=== PATIENT | male | born 1965 | race Hispanic/Latino ===

== ENCOUNTER → 2017-06-17 | Outpatient (CLI) | payer MEDICARE ==
[~2017-06-17] MED LIST: IOPAMIDOL-370 100 ML VIAL IV ONE
== END | disposition home or self-care (01) ==
LOC: OIH 09:43
PROVIDERS: ATTEND Internal Medicine Cardiovascular Disease
DX: I77.810 Thoracic aortic ectasia (principal)
CPT/HCPCS: 71275; Q9967

== ENCOUNTER 2020-09-11 08:29 | Emergency (ER) | payer MEDICARE ==
[~2020-09-11] VITALS: Ht 172.7 cm; Wt 95.3 kg
[2020-09-11 08:31] VITALS: BP 128/73
[2020-09-11 09:14] LABS: BASOPHILS % (AUTO) 0.4 % (0.0-5.0); EOSINOPHILS % (AUTO) 0.2 % (0.0-8.0); HEMATOCRIT 48.5 % (42-54); LYMPHOCYTES % (AUTO) 11.5 % (21.0-51.0); MEAN CORPUSCULAR HEMOGLOBIN 28.7 pg (27.0-33.0); MEAN CORPUSCULAR VOLUME 89.6 fL (79-99); MONOCYTES % (AUTO) 9.7 % (3.0-13.0); NEUTROPHILS % (AUTO) 77.7 % (40.0-77.0); PLATELET COUNT (AUTO) 188 K/uL (130-400); RED BLOOD CELL COUNT(AUTO) 5.41 MIL/uL (4.50-6.20); RED CELL DISTRIBUTION WIDTH 14.9 % (11.0-15.5); WHITE BLOOD COUNT (AUTO) 10.7 K/uL (4.8-10.8)
[2020-09-11 09:24] LABS: CREATININE 1.2 mg/dL (0.5-1.5); POTASSIUM 4.4 mmol/L (3.5-5.1)
[2020-09-11 09:29] LABS: ALBUMIN 3.3 g/dL (3.5-5.0); BILIRUBIN,TOTAL 0.4 mg/dL (0.2-1.0); TOTAL PROTEIN, SERUM 7.2 g/dL (6.0-8.3)
[2020-09-11 10:03] VITALS: BP 121/73
[2020-09-11] MEDS ORDERED: ACETAMINOPHEN 500 MG TABLET PO ONE (10:30)
[2020-09-11 10:34] LABS: APPEARANCE,URINE Clear (CLEAR); BILIRUBIN,URINE Negative (NEGATIVE); COLOR,URINE Yellow (YELLOW); GLUCOSE, URINE (UA) Negative (NEGATIVE); KETONES,URINE Trace mg/dL (NEGATIVE); LEUKOCYTE ESTERASE ,URINE Small (NEGATIVE); NITRATE,URINE Positive (NEGATIVE); OCCULT BLOOD,URINE Small (NEGATIVE); PH,URINE 5.5 (5.0-8.0); PROTEIN,URINE Negative (NEGATIVE)
[2020-09-11 10:51] LABS: BACTERIA,URINE Many /HPF (None Seen); MUCUS,URINE Few LPF (None Seen); SQUAMOUS EPITHELIAL CELL,UR 0-2 /HPF (0-2)
[2020-09-11] MEDS ORDERED: DOXY100T2 PO (11:06)
[2020-09-11] MEDS ORDERED: ACET-66 PO (11:06)
== END 2020-09-11 11:14 | disposition home or self-care (01) ==
LOC: EDH 08:29
DX: N39.0 Urinary tract infection, site not specified (principal); E11.9 Type 2 diabetes mellitus without complications; I10 Essential (primary) hypertension; Z79.899 Other long term (current) drug therapy
CPT/HCPCS: 36415; 80053; 81001; 85025; 87077; 87088; 87186

== ENCOUNTER 2023-08-10 13:55 | Emergency (ER) | payer MEDICARE, MEDICAID ==
[~2023-08-10] VITALS: Ht 172.7 cm; Wt 104.3 kg
[~2023-08-10 13:55] MED LIST changes: +ACET-66 PO; +DOXY100T2 PO; -IOPAMIDOL-370 100 ML VIAL IV ONE
[2023-08-10] MEDS: ASPIRIN 325MG TAB PO ONE (14:15)
[2023-08-10 14:17] LABS: BASOPHILS # (AUTO) 0.08 K/uL (0.00-0.20); BASOPHILS % (AUTO) 1.1 % (0.0-5.0); EOSINOPHILS # (AUTO) 0.56 K/uL (0.00-0.70); EOSINOPHILS % (AUTO) 7.9 % (0.0-8.0); IMMATURE GRANULOCYTE ABSOLUTE 0.02 K/uL (0-1); LYMPHOCYTES # (AUTO) 3.3 K/uL (1.0-4.8); LYMPHOCYTES % (AUTO) 46.3 % (21.0-51.0); MEAN CORPUSCULAR HEMOGLOBIN 28.9 pg (27.0-33.0); MEAN CORPUSCULAR HGB CONC 33.1 g/dL (32.0-36.0); MEAN CORPUSCULAR VOLUME 87.4 fL (79-99); MONOCYTES # (AUTO) 0.5 K/uL (0.1-1.0); MONOCYTES % (AUTO) 6.9 % (3.0-13.0); NEUTROPHILS # (AUTO) 2.7 K/uL (1.8-7.7); NEUTROPHILS % (AUTO) 37.5 % (40.0-77.0); PLATELET COUNT (AUTO) 203 K/uL (130-400); RED BLOOD CELL COUNT(AUTO) 5.95 MIL/uL (4.50-6.20); RED CELL DISTRIBUTION WIDTH 13.9 % (11.0-15.5); WHITE BLOOD COUNT (AUTO) 7.1 K/uL (4.8-10.8)
[2023-08-10 14:25] LABS: POTASSIUM 4.7 mmol/L (3.5-5.1)
[2023-08-10 14:27] LABS: APPEARANCE,URINE CLEAR (CLEAR); BILIRUBIN,URINE NEGATIVE (NEGATIVE); COLOR,URINE LIGHT-YELLOW (YELLOW); GLUCOSE, URINE (UA) NEGATIVE (NEGATIVE); KETONES,URINE NEGATIVE (NEGATIVE); LEUKOCYTE ESTERASE ,URINE NEGATIVE Leu/uL (NEGATIVE); NITRATE,URINE NEGATIVE (NEGATIVE); OCCULT BLOOD,URINE NEGATIVE (NEGATIVE); PROTEIN,URINE NEGATIVE (NEGATIVE); UROBILINOGEN,URINE 0.2 mg/dL (0.2-1.0)
[2023-08-10 14:30] LABS: ADD UA MICROSCOPIC YES
[2023-08-10 14:30] LABS: BILIRUBIN,TOTAL 0.2 mg/dL (0.2-1.0); MAGNESIUM 1.9 mg/dL (1.80-2.40)
[2023-08-10 14:31] LABS: MUCUS,URINE RARE LPF (None Seen); RBC,URINE 0-1 /HPF (0-1)
[2023-08-10 17:15] VITALS: BP 123/87; PULSE 71; RESP 18; O2SAT 99
== END 2023-08-10 17:15 | disposition home or self-care (01) ==
LOC: EDH 13:55
DX: B34.9 Viral infection, unspecified (principal); R20.2 Paresthesia of skin; E11.9 Type 2 diabetes mellitus without complications; I10 Essential (primary) hypertension
CPT/HCPCS: 36415; 71045; 80053; 81001; 83735; 84484; 85025; 93005

== ENCOUNTER → 2024-10-16 | Emergency (ER) | payer MEDICARE ==
[~2024-10-16] VITALS: Ht 172.7 cm; Wt 114.3 kg
--- NOTE | 2024-10-16 21:16 | NUR ---
REPORT TO JOCE MATHIS
--- NOTE | 2024-10-16 21:17 | NUR ---
UA CUP PROVIDED
[2024-10-16 21:38] LABS: APPEARANCE,URINE CLEAR (CLEAR); GLUCOSE, URINE (UA) NEGATIVE (NEGATIVE); LEUKOCYTE ESTERASE ,URINE NEGATIVE Leu/uL (NEGATIVE); NITRATE,URINE NEGATIVE (NEGATIVE); OCCULT BLOOD,URINE NEGATIVE (NEGATIVE)
--- NOTE | 2024-10-16 21:39 | ERN ---
ED Note History of Present Illness Stated Complaint: CHEST PAIN, HTN, NUMBNESS Chief Complaint: Multiple Complaints Time Seen by MD: 21:17 Dictation: This is a 59-year-old male who presented to the emergency room with complaints of midsternal chest pain radiating to the back which started about 3 days ago. So associated with some shortness of breath also. In view of the symptoms checked his blood pressure today at home which showed 157/121. At around 6:00 p.m. he also began experiencing some numbness of the left arm and leg. Given these symptoms he came into the ER for further evaluation. No headache diplopia facial asymmetry slurred speech or seizure activity. He has had similar episodes of paresthesias in the left arm in the past Temperature 98 pulse 81 respirations 20 blood pressure 168/106 with a pulse oximetry of 98% on room air Chronic medical problems include diabetes mellitus, hypertension, extensive surgeries on neck knee. Allergies: Coded Allergies: No Known Allergies (Unverified Allergy, Unknown, 09/11/20) Home Meds Active Scripts Acetaminophen (Tylenol) 500 Mg Tab, 500 MG PO Q6HPRN PRN for FEVER for 7 Days, #30 TAB 0 Refills Prov:FELIX TEJADA MD 09/11/20 Doxycycline Hyclate (Doxycycline Hyclate) 100 Mg Tablet, 100 MG PO BID for 14 Days, #28 TAB 0 Refills Prov:FELIX TEJADA MD 09/11/20 Past Medical History Past Medical History: Diabetes-Type II, Hypertension Surgical History: Other Surgical History Other: MULTIPLE BACK, KNEE, RT SHOULDER Family History: Negative RN Note Reviewed/Agreed w/PFSH: Yes Review of System Dictation Constitutional: Negative for fever,chills, and weight loss Eyes: Negative for injury, pain,redness, and discharge ENT: Negative for injury,pain or swelling Cardiovascular: Positive for chest pressure, denies palpitations, and edema Respiratory: Negative for shortness of breath, cough, and wheezing, Abdomen/GI: Negative for abdominal pain, nausea, vomiting, diarrhea, and constipation Back: Negative for injury and pain : Negative for injury, bleeding and discharge MS/Extremity: Negative for injury and deformity Skin: Negative for rash, and discoloration Neuro: Negative for headache, weakness, , tingling, and seizure positive for numbness in the left arm and leg Psych: Negative for suicide ideation, homicidal ideation, and hallucinations Initial Vital Sign VS Vital Signs Date Time Temp Pulse Resp B/P (MAP) Pulse Ox O2 Delivery O2 Flow Rate FiO2 10/16/24 21:15 98.1 81 20 168/106 98 Room Air 10/16/24 21:40 0 21 Physical Exam Dictation General: awake, alert, NAD overweight male Head/Face: Normocephalic, atraumatic Eyes: PERRL, EOMI, vision at baseline ENT: oral cavity clear, TMs clear, no signs of infection Mallampati score 4 Neck: Trachea midline, supple, no nuchal rigidity, short and thick Cardiovascular: RRR, normal S1/S2, No MRGs, no JVD Respiratory: CTAB, no respiratory distress, No rales or wheezes Abdomen: Soft, non-tender, non-distended, normal bowel sounds, no guarding or rebound. Skin: Warm, dry, normal turgor, no rash MS/Extremity: Pulses equal, no cyanosis, neurovascular intact, FROM Neuro: COAx4, GCS 15, strength 5/5, CN 2-12 intact, normal cerebellar exam, normal gait, Psych: Normal behavior, mood, and affect normal Extremities-trace edema without any palpable cords, Homans sign is negative Results (Laboratory/Radiology) Laboratory/Radiology Laboratory Tests Test 10/16/24 21:28 10/16/24 21:45 Urine Color LIGHT-YELLOW (YELLOW) Urine Appearance CLEAR (CLEAR) Urine pH 5.5 (5.0-8.0) Urine Specific [place] 1.022 (1.001-1.031) Urine Protein NEGATIVE mg/dL (NEGATIVE) Urine Glucose (UA) NEGATIVE mg/dL (NEGATIVE) Urine Ketones NEGATIVE mg/dL (NEGATIVE) Urine Occult Blood NEGATIVE (NEGATIVE) Urine Nitrate NEGATIVE (NEGATIVE) Urine Bilirubin NEGATIVE mg/dL (NEGATIVE) Urine Urobilinogen 0.2 mg/dL (0.2-1.0) Urine Leukocyte Esterase NEGATIVE [place]/uL Urine Opiates Screen NEGATIVE (NEGATIVE) Urine Barbiturates Screen NEGATIVE (NEGATIVE) Urine Phencyclidine Screen NEGATIVE (NEGATIVE) Urine Amphetamines Screen NEGATIVE (NEGATIVE) Urine Benzodiazepines Screen NEGATIVE (NEGATIVE) Urine Cocaine Screen NEGATIVE (NEGATIVE) Urine Marijuana (THC) Screen NEGATIVE (NEGATIVE) White Blood Count 7.4 K/uL (4.8-10.8) Red Blood Count 5.48 MIL/uL (4.50-6.20) Hemoglobin 16.3 g/dL (14.0-18.0) Hematocrit 48.5 % (42-54) Mean Corpuscular Volume 88.5 fL (79-99) Mean Corpuscular Hemoglobin 29.7 pg (27.0-33.0) Mean Corpuscular Hemoglobin Concent 33.6 g/dL (32.0-36.0) Red Cell Distribution Width 13.6 % (11.0-15.5) Platelet Count 186 K/uL (130-400) Mean Platelet Volume 11.3 fL (7.5-10.5) H Immature Granulocyte % (Auto) 0.1 % (0-1) Neutrophils (%) (Auto) 42.6 % (40.0-77.0) Lymphocytes (%) (Auto) 40.4 % (21.0-51.0) Monocytes (%) (Auto) 6.2 % (3.0-13.0) Eosinophils (%) (Auto) 9.6 % (0.0-8.0) H Basophils (%) (Auto) 1.1 % (0.0-5.0) Neutrophils # (Auto) 3.2 K/uL (1.8-7.7) Lymphocytes # (Auto) 3.0 K/uL (1.0-4.8) Monocytes # (Auto) 0.5 K/uL (0.1-1.0) Eosinophils # (Auto) 0.71 K/uL (0.00-0.70) H Basophils # (Auto) 0.08 K/uL (0.00-0.20) Absolute Immature Granulocyte (auto 0.01 K/uL (0-1) Nucleated Red Blood Cells 0.0 % (0.0-0.19) Sodium Level 142 mmol/L (136-145) Potassium Level 3.9 mmol/L (3.5-5.1) Chloride Level 107 mmol/L (101-111) Carbon Dioxide Level 28 mmol/L (21-32) Blood Urea Nitrogen 16 mg/dL (7-18) Creatinine 0.8 mg/dL (0.5-1.3) Glomerular Filtration Rate Calc 102 mL/min (>90) Random Glucose 145 mg/dL (70-105) H Total Calcium 9.0 mg/dL (8.5-10.1) Total Creatine Kinase 66 U/L (21-232) Troponin I High Sensitivity 40 ng/L (4-75) B-Type Natriuretic Peptide < 5 pg/mL (0-100) Labs Reviewed?: Yes ED Course ED Course Orders Procedure Category Date Status Time Vital Signs Per CPOE 10/16/24 Transmitted Routine 21:16 Chest 1vw RAD 10/16/24 Resulted 21:16 12 Lead Ekg Tracing- EKG 10/16/24 Logged Technical 21:16 Oxygen By Nc/Pulse Ox CPOE 10/16/24 Transmitted 21:16 Maintain Iv CPOE 10/16/24 Transmitted 21:16 Iv Insertion CPOE 10/16/24 Transmitted 21:16 Cardiac Monitoring CPOE 10/16/24 Transmitted 21:16 Pulse Oximetry With CPOE 10/16/24 Transmitted Vs And Prn 21:16 Cbc With Differential LAB 10/16/24 Complete 21:16 Activity: Br W/Brp CPOE 10/16/24 Transmitted With Assist 21:16 Creatine Kinase, Total LAB 10/16/24 Complete 21:16 Troponin I High LAB 10/16/24 Complete Sensitivity 21:16 Urinalysis Profile LAB 10/16/24 Complete 21:16 Basic Metabolic Panel LAB 10/16/24 Complete 21:16 B-Type Natriuretic LAB 10/16/24 Complete Peptide 21:16 Drug Screen Urine LAB 10/16/24 Complete 21:30 Lidocaine Hcl 2% PHA 10/16/24 Complete Viscous (Lidocaine Hcl 23:30 Mag/Alum/Simeth 30ml PHA 10/16/24 Complete (Maalox Plus 30ml) 23:30 Famotidine 20mg Tab PHA 10/16/24 Complete (Pepcid 20mg Tab) 23:30 Dicyclomine Hcl PHA 10/16/24 Complete (Bentyl 10mg/5ml 23:30 Current Medications Medications (Trade) Dose Ordered Sig/Carlito Route PRN Reason Start Time Stop Time Status Last Admin Dose Admin Al Hydroxide/Mg Hydroxide (MAALox PLUS 30ML) 30 ml ONCE ONCE PO 10/16/24 23:30 10/16/24 23:31 DC 10/16/24 23:45 Dicyclomine HCl (Bentyl 10mg/5ml Syrup) 10 mg ONCE ONCE PO 10/16/24 23:30 10/16/24 23:31 DC 10/16/24 23:45 Famotidine (Pepcid 20mg Tab) 20 mg ONCE ONCE PO 10/16/24 23:30 10/16/24 23:31 DC 10/16/24 23:45 Lidocaine HCl (Lidocaine HCl 2% Viscous) 10 ml ONCE ONCE PO 10/16/24 23:30 10/16/24 23:31 DC 10/16/24 23:45 Vital Signs Date Time Temp Pulse Resp B/P (MAP) Pulse Ox O2 Delivery O2 Flow Rate FiO2 10/17/24 00:11 98.4 84 22 128/72 96 Room Air* 0 21 10/16/24 23:03 98.8 70 20 133/85 95 Room Air* 0 21 10/16/24 21:40 98.8 87 25 131/78 96 Room Air* 0 21 10/16/24 21:15 98.1 81 20 168/106 98 Room Air We will perform diagnostic labs, advanced imaging and administer medications according to the patient's complaint. Once the results are available, will review and personally interpreted the labs to rule out any acute life-thr eatening emergency the trach require immediate intervention and treatment. I will then re-evaluate the patient after treatment and diagnostic exams have return to determine whether the patient requires any further testing, can safely be discharged home or need further admission to hospital for additional treatment and evaluation. Labs reviewed CBC BNP 7 are within normal limits. Urinalysis is unremarkable. Urine drug screen is also negative. Troponins 40. Brain natriuretic peptide is less than 5. EKGs unremarkable for any acute coronary event. Chest x-ray elevated right hemidiaphragm and some compressive atelectasis on the right side but no evidence of any focal infiltrate or acute intra thoracic abnormality. They elevated right hemidiaphragm is likely related to cervical spondylosis and injury to the phrenic nerve I updated patient and spouse on all the available results and discussed possibilities that his chest discomfort was likely related to esophagitis or gastritis He responded very well to the symptomatic treatment. I counseled him on weight loss, avoidance of diet cokes he and spouse verbalized full understanding He should follow up with his primary care physician for outpatient polysomnography. Medical Decision Making MDM MDM: Differential diagnosis: Rationale: Tests considered and ordered secondary to shared decision making include: Previous outside records reviewed: Old ER visits. Risk of complication and/or morbidity or mortality of patient management: None Medications-Per medication reconciliation Need for hospitalization: Patient does not meet criteria for hospitalization. Need for emergency major/minor surgery: No There are no social concerns with this patient. Prescription drug management Prescriptions will include symptomatic care Patient's prior external medical records from other ER visits were reviewed by me as indicated. Prior testing and results from previous visits were reviewed. Prior tests were taken into account with medical decision making and resource utilization, independent historian/historians were used to obtain complete medical history. I independently interpreted the test that were performed, results were reviewed by me and considered findings on radiology if ordered. Medical management and examination interpretation discussions were had by me with other qualified healthcare professionals as indicated for the patient's care. Problem List Problem List: (1) Arm paresthesia, left (2) Atypical chest pain (3) Gastroesophageal reflux (4) Herniated cervical disc (5) Cervical radiculopathy DX & DISP Disposition: Discharge Departure Impression: Primary Impression: Arm paresthesia, left Additional Impressions: Atypical chest pain, Gastroesophageal reflux, Herniated cervical disc, Cervical radiculopathy Condition: Stable Additional Instructions: Patient and the caregiver have been informed of all the diagnostic tests and the imaging conducted during the today's visit to the emergency room and has verbalized understanding of the results I have personally reviewed and interpreted all diagnostic exams performed here in the ER today as well as the vital signs documented by the nursing staff. The patient is now being discharged to home and should follow up with the primary care physician or the specialist as directed by the ER staff. Follow-up with primary care provider in 1 to 2 days. Take medications as directed here in the emergency room. Okay to continue home medications unless otherwise discussed during your visit in the emergency room today. Return to your nearest emergency room if symptoms worsen or if there is no improvement. Call 911 if you need immediate assistance. Take Tylenol or Motrin over-the- counter as needed and if no contraindications are present. Increase oral hydration. A wound culture or urine culture was ordered here in the emergency room department please follow-up with primary care provider and advise them to get repeat ports from our facility. If you had any Jose wrap/splints that were applied here, please do not remove them until you see your primary care or specialty. Patient was educated on pursuing a outpatient sleep study, counseled on dietary changes and avoidance of consumption of large amounts of diet Coke. I also counseled him on lifestyle modifications weight loss and sleep hygiene Referrals: SELF,REFERRAL (PCP) BRITTA AMADOR MD Oct 16, 2024 21:39
[2024-10-16 21:40] LABS: ADD UA MICROSCOPIC NO
[2024-10-16 21:56] LABS: IMMATURE GRANULOCYTE ABSOLUTE 0.01 K/uL (0-1); NUCLEATED RED BLOOD CELLS 0.0 % (0.0-0.19); PLATELET COUNT (AUTO) 186 K/uL (130-400); RED BLOOD CELL COUNT(AUTO) 5.48 MIL/uL (4.50-6.20); RED CELL DISTRIBUTION WIDTH 13.6 % (11.0-15.5); WHITE BLOOD COUNT (AUTO) 7.4 K/uL (4.8-10.8)
[2024-10-16 22:01] LABS: CREATININE 0.8 mg/dL (0.5-1.3); GLOMERULAR FILTR. RATE CALC 102.0 mL/min (>90); GLUCOSE,RANDOM 145.0 mg/dL (70-105); SODIUM SERUM 142.0 mmol/L (136-145); UREA NITROGEN, BLOOD 16.0 mg/dL (7-18)
[2024-10-16 22:03] LABS: AMPHET/METH SCREEN,URINE NEGATIVE (NEGATIVE); BARBITURATE SCREEN, URINE NEGATIVE (NEGATIVE); CANNABINOID SCREEN,URINE NEGATIVE (NEGATIVE); COCAINE SCREEN,URINE NEGATIVE (NEGATIVE)
[2024-10-16 22:10] LABS: CREATINE KINASE, TOTAL 66.0 U/L (21-232)
--- NOTE | 2024-10-16 22:56 | HMCIMG ---
EXAM: CR Chest, 1 view CLINICAL HISTORY: Chest pain. COMPARISON: Chest radiograph dated 08/10/2023. FINDINGS: The lungs show no infiltrates or other acute findings. No pleural effusion or pneumothorax. The cardiomediastinal silhouette is within normal limits. No acute osseous abnormality. Metal implant in the cervical spine. An orthopedic anchor around the right proximal numerous. Mild right diaphragmatic eventration. IMPRESSION: No acute cardiopulmonary process is evident. Mild right diaphragmatic eventration. No interval changes. /[place]
[2024-10-16] MEDS: FAMOTIDINE 20MG TAB PO ONE (23:45)
[2024-10-16] MEDS: MAG/ALUM/SIMETH 30 ML UDCUP PO ONE (23:45)
[2024-10-16] MEDS: DICYCLOMINE HCL 10 MG/5 ML ML PO ONE (23:45)
[2024-10-16] MEDS: LIDOCAINE HCL 2% VISCOUS 15 ML UDCUP PO ONE (23:45)
[2024-10-17 00:11] VITALS: BP 128/72; PULSE 84; RESP 22; TEMP 98.4; O2SAT 96
--- NOTE | 2024-10-17 05:52 | EKG ---
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
== END ==
LOC: EDH 21:14
DX: R20.2 Paresthesia of skin (principal); R07.89 Other chest pain; K21.9 Gastro-esophageal reflux disease without esophagitis; M50.20 Other cervical disc displacement, unspecified cervical region; M54.12 Radiculopathy, cervical region; E11.9 Type 2 diabetes mellitus without complications; I10 Essential (primary) hypertension; Z79.899 Other long term (current) drug therapy
CPT/HCPCS: 36415; 71045; 80048; 80305; 81003; 82550; 83880; 84484; 85025; 93005; 99285